=== PATIENT | female | born 1960 | race African-American/Black ===

== ENCOUNTER 2021-01-19 20:00 | Emergency (ER) | payer BC ==
[~2021-01-19] VITALS: Ht 167.6 cm; Wt 98.0 kg
--- NOTE | 2021-01-19 20:30 | NUR ---
PT TAKEN TO CT OF HEAD
[2021-01-19] MEDS ORDERED: MECLIZINE HCL 25 MG TABLET ONE (20:42)
--- NOTE | 2021-01-19 20:42 | NUR ---
PT BACK TO ED BED 2
[2021-01-19] MEDS: MECLIZINE HCL 25 MG TABLET PO ONE (20:44)
[2021-01-19 21:08] LABS: BASOPHILS % (AUTO) 0.5 % (0.0-2.0); HEMATOCRIT 35 % (33-45); HEMOGLOBIN 11.4 g/dL (11.5-14.8); LYMPHOCYTES # (AUTO) 2.2 K/uL (0.8-4.8); LYMPHOCYTES % (AUTO) 26.6 % (20.0-44.0); MEAN CORPUSCULAR HGB CONC 32 g/dl (31.0-36.0); MEAN CORPUSCULAR VOLUME 84 fL (82-100); MONOCYTES # (AUTO) 0.4 K/uL (0.1-1.30); MONOCYTES % (AUTO) 5.1 % (2.0-12.0); NEUTROPHILS # (AUTO) 5.5 K/uL (1.8-8.9); NEUTROPHILS % (AUTO) 66.8 % (43.0-81.0); PLATELET COUNT (AUTO) 338 K/uL (150-450); RED BLOOD CELL COUNT(AUTO) 4.23 MIL/uL (4.0-5.2); WHITE BLOOD COUNT (AUTO) 8.3 K/uL (4.3-11.0)
[2021-01-19 21:14] LABS: CALCIUM, SERUM 9.4 mg/dL (8.5-10.1); CARBON DIOXIDE 29 mmol/L (21-32); CHLORIDE 107 mmol/L (98-107); GLUCOSE 115 mg/dL (74-106); POTASSIUM 4.4 mmol/L (3.5-5.1); SODIUM SERUM 145 mmol/L (136-145); UREA NITROGEN, BLOOD 9 mg/dL (7-18)
[2021-01-19] MEDS ORDERED: MECL-159 PO (21:49)
--- NOTE | 2021-01-19 22:16 | NUR ---
Patient discharged to home in stable condition. Rx and Written and verbal after care instructions given. Patient verbalizes understanding of instruction.
[2021-01-19 22:28] VITALS: BP 152/89
== END 2021-01-19 22:28 | disposition home or self-care (01) ==
LOC: ER 20:02
DX: R42 Dizziness and giddiness (principal); I10 Essential (primary) hypertension; Z98.890 Other specified postprocedural states
CPT/HCPCS: 36415; 70450; 80048; 84484; 85025; 93005; 99285; J8597